=== PATIENT | female | born 1950 | race Caucasian/White ===

== ENCOUNTER 2022-11-24 20:56 | Inpatient (IN) | payer MEDICARE, OTHER ==
[2022-11-24 21:20] VITALS: BMI 45.3
[2022-11-24 22:55] LABS: Magnesium 1.8 mg/dL (1.6-2.6)
[2022-11-25 00:16] LABS: Troponin I Less than 0.010 ng/mL (< 0.028)
[2022-11-25 02:54] LABS: #Neutrophils 6.9 thou/uL (1.40-6.50); %Basophils 0.2 % (0.0-1.0); %Eosinophils 0.1 % (0.0-10.0); %Lymphocytes 12.4 % (21.0-51.0); %Monocytes 11.1 % (0.0-10.0); %Neutrophils 75.8 % (42.0-75.0); Hematocrit 37.4 % (36.0-47.0); Hemoglobin 12.5 g/dL (12.0-16.0); Mean Corpuscular HGB CONC 33.4 g/dL (32.0-36.0); Mean Corpuscular Hemoglobin 30.8 pg (27.0-31.0); Mean Corpuscular Volume 92.1 fl (78.0-98.0); Mean Platelet Volume 10.6 fL (7.4-10.4); Platelet Count 179 10x3/uL (130-400); RBC Distribution Width 17.2 % (11.5-14.5); Red Blood Cell (RBC) Count 4.06 mill/uL (4.20-5.40); White Blood Cell (WBC) Count 9.1 10x3/uL (4.8-10.8)
[2022-11-25 03:21] LABS: Troponin I Less than 0.010 ng/mL (< 0.028)
[2022-11-25 03:32] LABS: Anion Gap 15 mmol/L (10-20); BUN (Urea Nitrogen) 15 mg/dL (9.8-20.1); Calc. Creatinine Clearance 91 mL/min (70-130); Calcium 9.1 mg/dL (7.8-10.44); Carbon Dioxide 29 mmol/L (23-31); Chloride 100 mmol/L (98-107); Estimated GFR 52; Glucose 97 mg/dL (83-110); Potassium 3.3 mmol/L (3.5-5.1); Sodium 141 mmol/L (136-145)
[2022-11-25] MEDS: Levothyroxine Sodium 50 MCG TAB PO SCH (06:18)
[2022-11-25] MEDS: Furosemide 40 MG/4 ML VIAL SLOW IVP SCH ×2 (06:18→15:03)
[2022-11-25] MEDS ORDERED: Electrolyte Replacement Protocol 1 EACH FS PRN (06:29)
[2022-11-25] MEDS ORDERED: Magnesium 2 GM/50 ML(in water) 2 GM in Premix Bag 1 BAG IVPB SCH (06:45)
[2022-11-25] MEDS ORDERED: Potassium Chloride 20 MEQ TAB PO SCH ×2 (06:45→16:45)
[2022-11-25] MEDS: Apixaban 5 MG TAB PO SCH ×2 (08:34→20:12)
[2022-11-25] MEDS: Magnesium Oxide 400 MG TAB PO SCH (08:34)
[2022-11-25] MEDS ORDERED: Lisinopril 2.5 MG TAB PO SCH (09:00)
[2022-11-26 04:26] LABS: #Monocytes 0.7 thou/uL (0.11-0.59); #Neutrophils 5.7 thou/uL (1.40-6.50); %Basophils 0.4 % (0.0-1.0); %Eosinophils 0.1 % (0.0-10.0); %Lymphocytes 13.3 % (21.0-51.0); %Monocytes 9.8 % (0.0-10.0); %Neutrophils 76.1 % (42.0-75.0); Hematocrit 39.9 % (36.0-47.0); Mean Corpuscular HGB CONC 32.6 g/dL (32.0-36.0); Mean Corpuscular Hemoglobin 31.6 pg (27.0-31.0); Mean Corpuscular Volume 96.8 fl (78.0-98.0); Mean Platelet Volume 11.4 fL (7.4-10.4); Platelet Count 156 10x3/uL (130-400); RBC Distribution Width 17.6 % (11.5-14.5); Red Blood Cell (RBC) Count 4.12 mill/uL (4.20-5.40); White Blood Cell (WBC) Count 7.5 10x3/uL (4.8-10.8)
[2022-11-26 04:39] LABS: INR-International Normal Ratio 1.3; PTT 22.9 sec (22.9-36.1); Prothrombin Time 16.5 sec (12.0-14.7)
[2022-11-26 04:54] LABS: Anion Gap 16 mmol/L (10-20); BUN (Urea Nitrogen) 23 mg/dL (9.8-20.1); Calc. Creatinine Clearance 60 mL/min (70-130); Calcium 9.3 mg/dL (7.8-10.44); Carbon Dioxide 26 mmol/L (23-31); Chloride 99 mmol/L (98-107); Estimated GFR 32; Glucose 90 mg/dL (83-110); Sodium 137 mmol/L (136-145)
[2022-11-26] MEDS ORDERED: Furosemide 20 MG/2 ML VIAL SLOW IVP SCH (06:00)
[2022-11-26] MEDS: Levothyroxine Sodium 50 MCG TAB PO SCH (06:17)
[2022-11-26] MEDS: Carvedilol 3.125 MG TAB PO SCH ×2 (09:30→16:36)
[2022-11-26] MEDS: Magnesium Oxide 400 MG TAB PO SCH (09:30)
[2022-11-26] MEDS: Apixaban 5 MG TAB PO SCH ×2 (09:31→20:00)
[2022-11-27] MEDS: Levothyroxine Sodium 50 MCG TAB PO SCH (05:14)
[2022-11-27 07:44] LABS: Anion Gap 13 mmol/L (10-20); BUN (Urea Nitrogen) 27 mg/dL (9.8-20.1); Calc. Creatinine Clearance 66 mL/min (70-130); Calcium 9.2 mg/dL (7.8-10.44); Carbon Dioxide 31 mmol/L (23-31); Chloride 96 mmol/L (98-107); Estimated GFR 36; Glucose 98 mg/dL (83-110); Potassium 3.5 mmol/L (3.5-5.1); Sodium 136 mmol/L (136-145)
[2022-11-27] MEDS ORDERED: Furosemide 20 MG TAB PO SCH (09:00)
[2022-11-27] MEDS ORDERED: Potassium Chloride 20 MEQ TAB PO SCH (09:00)
[2022-11-27] MEDS ORDERED: FLU VACC QS2023(65UP)/MF59C/PF 60 MCG/0.5 ML SYRINGE IM ONE (09:00)
[2022-11-27] MEDS: Magnesium Oxide 400 MG TAB PO SCH (09:14)
[2022-11-27] MEDS: Carvedilol 3.125 MG TAB PO SCH ×2 (09:15→16:38)
[2022-11-27] MEDS: Apixaban 5 MG TAB PO SCH (09:15)
[2022-11-27 15:49] VITALS: BP 119/64; TEMP 97.8
== END 2022-11-27 18:12 | disposition home or self-care (01) | DRG 291 ==
LOC: 2NO 20:56 → OBSVTOIN 11-25 12:46
PROVIDERS: ADMIT Internal Medicine; ATTEND Internal Medicine
DX: I11.0 Hypertensive heart disease with heart failure (principal); I50.33 Acute on chronic diastolic (congestive) heart failure; C22.8 Malignant neoplasm of liver, primary, unspecified as to type; Z68.41 Body mass index [BMI] 40.0-44.9, adult; N17.9 Acute kidney failure, unspecified; Z20.822 Contact with and (suspected) exposure to COVID-19; E83.42 Hypomagnesemia; E66.01 Morbid (severe) obesity due to excess calories; T50.2X5A Adverse effect of carbonic-anhydrase inhibitors, benzothiadiazides and other diuretics, initial encounter; E03.9 Hypothyroidism, unspecified; Z88.0 Allergy status to penicillin; Z79.01 Long term (current) use of anticoagulants; Z79.899 Other long term (current) drug therapy; Z86.711 Personal history of pulmonary embolism; Z85.43 Personal history of malignant neoplasm of ovary; Z85.05 Personal history of malignant neoplasm of liver; Z90.710 Acquired absence of both cervix and uterus; Z98.890 Other specified postprocedural states
CPT/HCPCS: 36415; 71045; 71275; 80048; 80053; 83605; 83735; 83880; 84443; 84484; 85025; 85610; 85730; 93005; 93798; 94760; 96365; 96375; J1940; J3475; J7620; Q9967

== ENCOUNTER 2022-11-29 21:56 | Emergency (ER) | payer MEDICARE, OTHER ==
[~2022-11-29 21:56] MED LIST: Iopamidol 370 76% 100 ML VIAL ONE
[2022-11-29 23:09] LABS: #Monocytes 0.6 thou/uL (0.11-0.59); #Neutrophils 10.8 thou/uL (1.40-6.50); %Basophils 0.2 % (0.0-1.0); %Eosinophils 0.2 % (0.0-10.0); %Monocytes 4.8 % (0.0-10.0); %Neutrophils 87.3 % (42.0-75.0); Hematocrit 40.3 % (36.0-47.0); Hemoglobin 13.2 g/dL (12.0-16.0); Mean Corpuscular HGB CONC 32.8 g/dL (32.0-36.0); Mean Corpuscular Hemoglobin 31.4 pg (27.0-31.0); Mean Platelet Volume 10.9 fL (7.4-10.4); Platelet Count 170 10x3/uL (130-400); RBC Distribution Width 17.1 % (11.5-14.5); White Blood Cell (WBC) Count 12.4 10x3/uL (4.8-10.8)
[2022-11-29 23:35] LABS: Troponin I Less than 0.010 ng/mL (< 0.028)
[2022-11-29 23:37] LABS: ALT (SGPT) 17 U/L (8-55); AST (SGOT) 23 U/L (5-34); Albumin 3.8 g/dL (3.4-4.8); Alkaline Phosphatase 253 U/L (40-110); Anion Gap 17 mmol/L (10-20); BUN (Urea Nitrogen) 23 mg/dL (9.8-20.1); Bilirubin, Total 0.5 mg/dL (0.2-1.2); Calc. Creatinine Clearance 0 mL/min (70-130); Calcium 9.2 mg/dL (7.8-10.44); Carbon Dioxide 26 mmol/L (23-31); Chloride 100 mmol/L (98-107); Estimated GFR 53; Globulin 2.5 g/dL (2.4-3.5); Glucose 109 mg/dL (83-110); Lipase 4 U/L (8-78); Potassium 4.1 mmol/L (3.5-5.1); Protein, Total 6.3 g/dL (5.8-8.1); Sodium 139 mmol/L (136-145)
[2022-11-29 23:52] LABS: SARS-CoV-2 NAA Rapid Test Not Detected (NotDetected)
== END 2022-11-30 02:28 | disposition home or self-care (01) ==
LOC: ERS 21:56
DX: J18.9 Pneumonia, unspecified organism (principal); R11.2 Nausea with vomiting, unspecified; Z20.822 Contact with and (suspected) exposure to COVID-19
CPT/HCPCS: 0240U; 71045; 74177; 80053; 83690; 83880; 84484; 85025; 93005; 36415; Q9967

== ENCOUNTER 2023-03-31 14:09 | Inpatient (IN) | payer MEDICARE, OTHER ==
[~2023-03-31 14:09] MED LIST changes: -Iopamidol 370 76% 100 ML VIAL ONE; +Iopamidol-370 76% 500 ML MDV (1 ML CHARGE) ONE
[2023-03-31 15:17] LABS: #Basophils 0.1 thou/uL (0.0-0.2); #Eosinphils 0.1 thou/uL (0.0-0.7); #Monocytes 1.9 thou/uL (0.11-0.59); #Neutrophils 12.8 thou/uL (1.40-6.50); %Basophils 0.4 % (0.0-1.0); %Eosinophils 0.3 % (0.0-10.0); %Monocytes 11.6 % (0.0-10.0); %Neutrophils 76.9 % (42.0-75.0); Hematocrit 40.2 % (36.0-47.0); Hemoglobin 13.2 g/dL (12.0-16.0); Mean Corpuscular HGB CONC 32.8 g/dL (32.0-36.0); Mean Corpuscular Hemoglobin 31.8 pg (27.0-31.0); Mean Corpuscular Volume 96.9 fl (78.0-98.0); Mean Platelet Volume 10.5 fL (7.4-10.4); Platelet Count 249 10x3/uL (130-400); RBC Distribution Width 16.7 % (11.5-14.5); Red Blood Cell (RBC) Count 4.15 mill/uL (4.20-5.40); White Blood Cell (WBC) Count 16.6 10x3/uL (4.8-10.8)
[2023-03-31 15:36] LABS: Troponin I Less than 0.010 ng/mL (< 0.028)
[2023-03-31 15:37] LABS: ALT (SGPT) 31 U/L (8-55); AST (SGOT) 90 U/L (5-34); Albumin 2.9 g/dL (3.4-4.8); Alkaline Phosphatase 1590 U/L (40-110); Anion Gap 15 mmol/L (10-20); BUN (Urea Nitrogen) 13 mg/dL (9.8-20.1); Bilirubin, Total 2.4 mg/dL (0.2-1.2); Calc. Creatinine Clearance 0 mL/min (70-130); Calcium 8.6 mg/dL (7.8-10.44); Carbon Dioxide 32 mmol/L (23-31); Chloride 94 mmol/L (98-107); Estimated GFR 76; Globulin 2.7 g/dL (2.4-3.5); Glucose 88 mg/dL (83-110); Potassium 4.1 mmol/L (3.5-5.1); Protein, Total 5.6 g/dL (5.8-8.1); Sodium 137 mmol/L (136-145)
[2023-03-31 15:53] LABS: SARS-CoV-2 NAA Rapid Test Not Detected (NotDetected)
[2023-03-31] MEDS ORDERED: Morphine 4 MG/ML VIAL ONE (17:11)
[2023-03-31] MEDS ORDERED: Ondansetron PF 4 MG/2 ML Vial ONE (17:11)
[2023-03-31 17:54] LABS: Bilirubin 1+ (Negative); Blood, Urine Negative (Negative); CAUTI Indications for Culture Pelvic or flank pain; Clarity Turbid (Clear); Glucose, Urine (Dipstick) Normal (Negative); Ketone, Urine 10 mg/dL (Negative); Leukocyte 500 Leu/uL (Negative); Nitrite Negative (Negative); Protein, Urine (Dipstick) 30 mg/dL (Neg-Trace); RBC/HPF 0-3 HPF (0-3); Specific Gravity, Urine 1.022 (1.002-1.036); Squamous Epithelial 0-3 HPF (0-3); WBC/HPF Greater than 50 HPF (0-3)
[2023-03-31 17:55] LABS: Bacteria/HPF 1+ HPF (None Seen)
[2023-03-31 17:56] LABS: Urine Culture Reflex Yes Yes
[2023-03-31] MEDS ORDERED: Sodium Chloride 0.9% 100 ML ONE (20:51)
[2023-03-31] MEDS ORDERED: cefTRIAXone (ROCEPHIN) 2 GM VIAL ONE (20:51)
[2023-03-31] MEDS ORDERED: Acetaminophen 325 MG TAB PO PRN (21:09)
[2023-03-31] MEDS ORDERED: Ondansetron ODT 4 MG TAB PO PRN (21:09)
[2023-03-31] MEDS ORDERED: Acetaminophen 650 MG Suppository PR PRN (21:09)
[2023-03-31] MEDS ORDERED: Electrolyte Replacement Protocol 1 EACH FS PRN (22:00)
[2023-03-31] MEDS ORDERED: Furosemide 40 MG (4 mL) VIAL ONE (23:21)
[2023-03-31] MEDS: Furosemide 40 MG (4 mL) VIAL SLOW IVP SCH (23:30)
[2023-04-01] MEDS: Albumin 25% 25 GM (100 mL) BOT IVPB SCH (01:18)
[2023-04-01] MEDS ORDERED: Ketorolac Tromethamine 30 MG (1 mL) VIAL ONE (02:44)
[2023-04-01] MEDS: Ketorolac Tromethamine 30 MG (1 mL) VIAL IVP PRN (02:46)
[2023-04-01 05:02] LABS: #Basophils 0.1 thou/uL (0.0-0.2); #Eosinphils 0.1 thou/uL (0.0-0.7); #Monocytes 1.9 thou/uL (0.11-0.59); #Neutrophils 12.3 thou/uL (1.40-6.50); %Basophils 0.3 % (0.0-1.0); %Eosinophils 0.5 % (0.0-10.0); %Lymphocytes 9.1 % (21.0-51.0); %Monocytes 12.1 % (0.0-10.0); %Neutrophils 77.5 % (42.0-75.0); Hematocrit 36.9 % (36.0-47.0); Hemoglobin 12.1 g/dL (12.0-16.0); Mean Corpuscular HGB CONC 32.8 g/dL (32.0-36.0); Mean Corpuscular Hemoglobin 30.4 pg (27.0-31.0); Mean Platelet Volume 11.1 fL (7.4-10.4); Platelet Count 241 10x3/uL (130-400); RBC Distribution Width 16.8 % (11.5-14.5); Red Blood Cell (RBC) Count 3.98 mill/uL (4.20-5.40); White Blood Cell (WBC) Count 15.9 10x3/uL (4.8-10.8)
[2023-04-01 05:09] LABS: Mean Corpuscular Volume 92.7 fl (78.0-98.0)
[2023-04-01 05:24] LABS: Anion Gap 17 mmol/L (10-20); BUN (Urea Nitrogen) 13 mg/dL (9.8-20.1); Calc. Creatinine Clearance 0 mL/min (70-130); Calcium 8.5 mg/dL (7.8-10.44); Carbon Dioxide 29 mmol/L (23-31); Chloride 94 mmol/L (98-107); Estimated GFR 76; Glucose 81 mg/dL (83-110); Magnesium 1.3 mg/dL (1.6-2.6); Potassium 3.4 mmol/L (3.5-5.1); Sodium 137 mmol/L (136-145)
[2023-04-01] MEDS ORDERED: Furosemide 40 MG (4 mL) VIAL ONE (06:13)
[2023-04-01] MEDS: Furosemide 40 MG (4 mL) VIAL SLOW IVP SCH (06:19)
[2023-04-01] MEDS: Magnesium Sulfate In Water 4 GM in Premix 1 BAG IVPB SCH (07:14)
[2023-04-01] MEDS ORDERED: Potassium Chloride 20 MEQ TAB ONE (07:48)
[2023-04-01] MEDS ORDERED: Famotidine 20 MG TAB ONE (07:48)
[2023-04-01] MEDS: Famotidine 20 MG TAB PO SCH (08:06)
[2023-04-01] MEDS: Potassium Chloride 20 MEQ TAB PO SCH (08:06)
[2023-04-01] MEDS: Ipratropium/Albuterol 3 ML NEB NEB PRN (12:28)
[2023-04-01] MEDS ORDERED: Methocarbamol 500 MG TAB PO PRN (17:13)
[2023-04-01] MEDS: Carvedilol 3.125 MG TAB PO SCH (17:30)
[2023-04-01] MEDS: Gabapentin 100 MG CAP PO SCH (22:35)
[2023-04-01] MEDS: Apixaban 5 MG TAB PO SCH (22:36)
[2023-04-01] MEDS: cefTRIAXone\\ROCEPHIN 1 GM in Sodium Chloride 0.9% 100 ML IVPB SCH (22:36)
[2023-04-02] MEDS: HYDROcodone/Acetaminophen 5/325 mg Tablet PO PRN (00:31)
[2023-04-02 04:36] LABS: #Eosinphils 0.1 thou/uL (0.0-0.7); #Monocytes 1.5 thou/uL (0.11-0.59); #Neutrophils 8.9 thou/uL (1.40-6.50); %Basophils 0.3 % (0.0-1.0); %Eosinophils 0.5 % (0.0-10.0); %Lymphocytes 13.4 % (21.0-51.0); %Monocytes 11.9 % (0.0-10.0); %Neutrophils 73.4 % (42.0-75.0); Hematocrit 35.4 % (36.0-47.0); Hemoglobin 11.7 g/dL (12.0-16.0); Mean Corpuscular HGB CONC 33.1 g/dL (32.0-36.0); Mean Corpuscular Hemoglobin 31.1 pg (27.0-31.0); Mean Corpuscular Volume 94.1 fl (78.0-98.0); Mean Platelet Volume 11.8 fL (7.4-10.4); Platelet Count 186 10x3/uL (130-400); RBC Distribution Width 17.1 % (11.5-14.5); Red Blood Cell (RBC) Count 3.76 mill/uL (4.20-5.40); White Blood Cell (WBC) Count 12.2 10x3/uL (4.8-10.8)
[2023-04-02] MEDS: Levothyroxine Sodium 50 MCG TAB PO SCH (06:43)
[2023-04-02 09:22] LABS: Chloride 89 mmol/L (98-107); Potassium 3.1 mmol/L (3.5-5.1); Sodium 137 mmol/L (136-145)
[2023-04-02 09:23] LABS: Calcium 8.7 mg/dL (7.8-10.44)
[2023-04-02 09:24] LABS: Glucose 84 mg/dL (83-110)
[2023-04-02 09:27] LABS: Calc. Creatinine Clearance 125 mL/min (70-130); Estimated GFR 81
[2023-04-02 09:28] LABS: BUN (Urea Nitrogen) 13 mg/dL (9.8-20.1)
[2023-04-02 09:29] LABS: Magnesium 1.6 mg/dL (1.6-2.6)
[2023-04-02 09:34] LABS: Carbon Dioxide 35 mmol/L (23-31)
[2023-04-02] MEDS: Cefepime 1 GM in Sodium Chloride 0.9% 100 ML IVPB SCH (09:47)
[2023-04-02] MEDS: Magnesium Oxide 400 MG TAB PO SCH (09:48)
[2023-04-02] MEDS: Potassium Chloride 20 MEQ TAB PO SCH (09:49)
[2023-04-02] MEDS: Senokot S 8.6-50 MG TAB PO PRN (09:52)
[2023-04-02 10:10] LABS: Anion Gap 16 mmol/L (10-20)
[2023-04-02] MEDS: Magnesium 2 GM/50 ML(in water) 2 GM in Premix 1 BAG IVPB SCH (11:00)
[2023-04-02 14:31] VITALS: BMI 43.0
[2023-04-03] MEDS: Furosemide 40 MG TAB PO SCH (09:04)
[2023-04-03] MEDS: Ciprofloxacin Lactate/D5W 400 MG in Premix 1 BAG IVPB SCH ×2 (14:46→21:20)
[2023-04-03 18:00] LABS: #Eosinphils 0.1 thou/uL (0.0-0.7); #Monocytes 1.5 thou/uL (0.11-0.59); #Neutrophils 8.9 thou/uL (1.40-6.50); %Basophils 0.3 % (0.0-1.0); %Eosinophils 0.4 % (0.0-10.0); %Monocytes 12.3 % (0.0-10.0); %Neutrophils 72.5 % (42.0-75.0); Hematocrit 36.8 % (36.0-47.0); Hemoglobin 12.5 g/dL (12.0-16.0); Mean Corpuscular Hemoglobin 31.6 pg (27.0-31.0); Mean Corpuscular Volume 92.9 fl (78.0-98.0); Mean Platelet Volume 11.1 fL (7.4-10.4); Platelet Count 216 10x3/uL (130-400); RBC Distribution Width 16.5 % (11.5-14.5); Red Blood Cell (RBC) Count 3.96 mill/uL (4.20-5.40); White Blood Cell (WBC) Count 12.3 10x3/uL (4.8-10.8)
[2023-04-03 18:37] LABS: Anion Gap 20 mmol/L (10-20); BUN (Urea Nitrogen) 15 mg/dL (9.8-20.1); Calc. Creatinine Clearance 133 mL/min (70-130); Calcium 8.4 mg/dL (7.8-10.44); Carbon Dioxide 30 mmol/L (23-31); Chloride 89 mmol/L (98-107); Estimated GFR 87; Glucose 80 mg/dL (83-110); Magnesium 1.6 mg/dL (1.6-2.6); Potassium 3.5 mmol/L (3.5-5.1); Sodium 135 mmol/L (136-145)
[2023-04-03] MEDS: Magnesium 2 GM/50 ML(in water) 2 GM in Premix 1 BAG IVPB SCH (22:57)
[2023-04-03] MEDS: Potassium Chloride 20 MEQ TAB PO SCH (22:58)
[2023-04-04] MEDS: Ondansetron PF 4 MG/2 ML Vial IVP PRN (08:12)
[2023-04-06] MEDS: HYDROcodone/Acetaminophen 10/325 mg Tablet PO PRN (12:07)
[2023-04-07] MEDS: HYDROcodone/Acetaminophen 5/325 mg Tablet PO PRN (11:56)
[2023-04-07 13:39] VITALS: BP 104/72; TEMP 98.5
== END 2023-04-07 15:02 | DRG 557 ==
LOC: ERS 14:09 → T4-A 21:04 → ERHOLD 21:35 → T4-A 04-01 13:36 → OBSVTOIN 04-01 15:09
PROVIDERS: ADMIT Internal Medicine; ATTEND Internal Medicine
PROC: 0T9B70Z Drainage of Bladder with Drainage Device, Via Natural or Artificial Opening (ICD-10-PCS; principal; 2023-03-31)
PROC: 30233J1 Transfusion of Nonautologous Serum Albumin into Peripheral Vein, Percutaneous Approach (ICD-10-PCS; 2023-03-31)
DX: M76.9 Unspecified enthesopathy, lower limb, excluding foot (principal); I50.33 Acute on chronic diastolic (congestive) heart failure; N39.0 Urinary tract infection, site not specified; C22.7 Other specified carcinomas of liver; M25.752 Osteophyte, left hip; Z90.710 Acquired absence of both cervix and uterus; Z98.890 Other specified postprocedural states; Z79.01 Long term (current) use of anticoagulants; Z79.899 Other long term (current) drug therapy; Z11.52 Encounter for screening for COVID-19; E88.09 Other disorders of plasma-protein metabolism, not elsewhere classified; E87.6 Hypokalemia; E83.42 Hypomagnesemia; E03.9 Hypothyroidism, unspecified; Z86.711 Personal history of pulmonary embolism; Z88.0 Allergy status to penicillin; I11.0 Hypertensive heart disease with heart failure
CPT/HCPCS: 36415; 71045; 74177; 80048; 80053; 81001; 83735; 83880; 84484; 85025; 87077; 87086; 87186; 93005; 93798; 94640; 96375; 96376; 97139; G0378; J0692; J0696; J0744; J1885; J1940; J2270; J2405; J3475; J3490; J7620; P9047; Q9967